=== PATIENT | male | born 1985 | race Caucasian/White ===

== ENCOUNTER 2017-03-06 15:18 | Emergency (ER) | payer OTHER ==
[2017-03-06 15:24] VITALS: TEMP 98; BMI 22.9
--- NOTE | 2017-03-06 16:20 | PDOC ---
History of Present Illness - History of Present Illness Initial Comments: 03/06/17 16:33 Patient is a 31 year old male with significant medical hx of chlamydia, hernia repair, and appendectomy who is presenting to the ED with three days of progressive right groin pain. The patient states that his pain is constant and travels upwards. His pain does not worsen with movement and states that its always there. The patient also complains of mild right lower back pain and testicular pain but notes that his testicles are non-tender to touch. The patient is sexually active with one partner and has been treated for chlamydia in the past, however he states that this does not feel the same. He denies any fevers, chills, nausea, vomiting, diarrhea, dysuria, hematuria, or difficulty urinating. <Mayuri Boogie - Last Filed: 03/06/17 20:07> <Sonal Nunez - Last Filed: 03/08/17 07:34> - General Chief Complaint: Pain Stated Complaint: GENITAL DISCOMFORT Time Seen by Provider: 03/06/17 16:16 Past History <Mayuri Boogie - Last Filed: 03/06/17 20:07> - Past Medical History Other medical history: NONE - Surgical History Abdominal Surgery: Yes (HERNIA) Appendectomy: Yes - Psycho/Social/Smoking Cessation Hx Anxiety: No Suicidal Ideation: No Smoking History: Current every day smoker Number of Cigarettes Smoked Daily: 5 Information on smoking cessation initiated: Yes 'Breaking Loose' booklet given: 03/06/17 Hx Alcohol Use: Yes (SOCIAL) Drug/Substance Use Hx: No Substance Use Type: None <Sonal Nunez - Last Filed: 03/08/17 07:34> - Past Medical History Allergies/Adverse Reactions: Allergies Allergy/AdvReac Type Severity Reaction Status Date / Time No Known Allergies Allergy Verified 03/06/17 15:23 Home Medications: Ambulatory Orders NK [No Known Home Medication] 03/06/17 Review of Systems - Review of Systems Comments:: 03/06/17 16:33 GENERAL/CONSTITUTIONAL: No fever or chills. No weakness. HEAD, EYES, EARS, NOSE AND THROAT: No change in vision. No ear pain or discharge. No sore throat. CARDIOVASCULAR: No chest pain or shortness of breath. RESPIRATORY: No cough, wheezing, or hemoptysis. GASTROINTESTINAL: No nausea, vomiting, diarrhea or constipation. GENITOURINARY: Testicular pain. No dysuria, frequency, or change in urination. MUSCULOSKELETAL: Right groin pain, right lower back pain. No joint or muscle swelling. No neck pain. ENDOCRINE: No increased thirst. No abnormal weight change. SKIN: No rash NEUROLOGIC: No headache, vertigo, loss of consciousness, or change in strength/ sensation. <ChuyitaMayuri - Last Filed: 03/06/17 20:07> *Physical Exam - Vital Signs Last Vital Signs Temp Pulse Resp BP Pulse Ox 98.0 F 76 20 138/93 98 03/06/17 15:20 03/06/17 15:20 03/06/17 15:20 03/06/17 15:20 03/06/17 15:20 <ChuyitaMayuri - Last Filed: 03/06/17 20:07> - Vital Signs Last Vital Signs Temp Pulse Resp BP Pulse Ox 98.0 F 76 20 138/93 98 03/06/17 15:20 03/06/17 15:20 03/06/17 15:20 03/06/17 15:20 03/06/17 15:20 - Physical Exam Comments: GENERAL: Awake, alert, and fully oriented, in no acute distress HEAD: No signs of trauma EYES: PERRLA, EOMI, sclera anicteric, conjunctiva clear ENT: Auricles normal inspection, hearing grossly normal, nares patent, oropharynx clear without exudates. Moist mucosa NECK: Normal ROM, supple, no lymphadenopathy, JVD, or masses LUNGS: Breath sounds equal, clear to auscultation bilaterally. No wheezes, and no crackles HEART: Regular rate and rhythm, normal S1 and S2, no murmurs, rubs or gallops ABDOMEN: Soft, nontender, normoactive bowel sounds. No guarding, no rebound. No masses EXTREMITIES: Normal range of motion, no edema. No clubbing or cyanosis. No cords, erythema, or tenderness NEUROLOGICAL: Cranial nerves II through XII grossly intact. Normal speech, normal gait SKIN: Warm, Dry, normal turgor, no rashes or lesions noted. : No external lesions. R groin with small well-healed scar. No LAD. No testicular swelling or tenderness. No erythema. Normal lie. <Sonal Nunez - Last Filed: 03/08/17 07:34> ED Treatment Course - RADIOLOGY Radiograph Interpretation: 03/06/17 20:07 Soft Tissue Extremity US Impression: No sonographic abnormality is identified. Reported By: Raghu Mckeon MD Scrotal US Impression: Negative exam. No sonographic abnormality is identified. Reported By: Raghu Mckeon MD Renal Stone CT Impression: There is no CT evidence of urolithiasis or obstructive uropathy. Note is made of a avulsion fracture involving the right anterior inferior iliac spine which is probably chronic (versus subacute). Correlate clinically. Reported By: Raghu Mckeon MD <Mayuri Boogie - Last Filed: 03/06/17 20:07> Medical Decision Making - Medical Decision Making Exam is benign. No obvious source of pain on ultrasound. UA shows +blood, otherwise no significant findings. CT obtained to r/o kidney stone, no stones found. He does have small avulsion fx of ASIS, but this is consistent with a prior injury he describes. GC/Chlam pending. Stable for DC home. <Sonal Nunez - Last Filed: 03/08/17 07:34> *DC/Admit/Observation/Transfer - Attestations Scribe Attestion: 03/06/17 16:34 Documentation prepared by Mayuri Boogie, acting as medical assembler for Sonal Nunez MD. <Mayuri Boogie - Last Filed: 03/06/17 20:07> - Discharge Dispostion Admit: No <Sonal Nunez - Last Filed: 03/08/17 07:34> Diagnosis at time of Disposition: Pelvic pain in male - Discharge Dispostion Disposition: HOME Condition at time of disposition: Stable - Patient Instructions Printed Discharge Instructions: DI for Pelvic Pain
[2017-03-06 17:31] LABS: URINE APPEARANCE CLEAR; URINE BILIRUBIN NEGATIVE (NEGATIVE); URINE COLOR YELLOW; URINE GLUCOSE (UA) NEGATIVE (NEGATIVE); URINE KETONE TRACE (NEGATIVE); URINE LEUK ESTERASE NEGATIVE (NEGATIVE); URINE NITRITE NEGATIVE (NEGATIVE); URINE PROTEIN NEGATIVE (NEGATIVE); URINE UROBILINOGEN 2.0 E.U/dl E.U./dl (0.2-1.0)
[2017-03-06 18:13] LABS: URINE BLOOD 1+ (NEGATIVE)
[2017-03-06 18:15] LABS: URINE MUCUS RARE; URINE RBC 6 /hpf (0-3); URINE WBC 1 /hpf (3-5)
[2017-03-06] MEDS ORDERED: IBUPROFEN 600 MG TABLET (FP) PO ONE ×2 (18:35→18:36)
[2017-03-06 18:39] VITALS: BP 126/79; PULSE 63
== END 2017-03-06 20:35 | disposition home or self-care (01) ==
LOC: JER 15:18
DX: R10.2 Pelvic and perineal pain (principal); F17.210 Nicotine dependence, cigarettes, uncomplicated
CPT/HCPCS: 36415; 74176; 76870-TC; 76882; 81003; 81015; 87491; 87591; 99283-25